=== PATIENT | female | born 1965 | race Caucasian/White ===

== ENCOUNTER 2017-11-29 15:50 | Emergency (ER) | payer SELFPAY ==
[~2017-11-29] VITALS: Ht 157.5 cm; Wt 70.3 kg
[2017-11-29] MEDS ORDERED: METFORMIN HCL500 M1 ORAL (16:11)
[2017-11-29] MEDS ORDERED: GLIMEPIRIDE4 MG ORAL (16:11)
[2017-11-29 17:00] VITALS: BP 134/88
[2017-11-29 17:03] LABS: ANION GAP 10 mmol/L (5-15); BLOOD UREA NITROGEN 11 mg/dL (7-18); CALCIUM 9.3 MG/DL (8.5-10.1); CARBON DIOXIDE 26 MMOL/L (21-32); CHLORIDE 105 MMOL/L (98-107); CREATININE 0.7 MG/DL (0.55-1.30); SODIUM 141 MMOL/L (136-145)
[2017-11-29 17:17] LABS: ALANINE AMINOTRANSFERASE 28 U/L (12-78); ALBUMIN 3.4 G/DL (3.4-5.0); ALKALINE PHOSPHATASE 68 U/L (46-116); ASPARTATE AMINO TRANSFERASE 10 U/L (15-37); BILIRUBIN,TOTAL 0.2 MG/DL (0.2-1.0); CKMB 0.5 NG/ML (0.0-3.6); CREATINE KINASE 46 U/L (26-308)
[2017-11-29 17:18] LABS: BASOPHILS % (AUTO) 1.2 % (0.0-2.0); EOSINOPHILS % (AUTO) 3.5 % (0.0-3.0); HEMATOCRIT 38.5 % (37.0-47.0); HEMOGLOBIN 13.1 G/DL (12.0-16.0); LYMPHOCYTES % (AUTO) 34.8 % (20.0-45.0); MEAN CORPUSCULAR VOLUME 90 FL (80-99); MONOCYTES % (AUTO) 5.2 % (1.0-10.0); NEUTROPHILS % (AUTO) 55.4 % (45.0-75.0); PLATELET COUNT 233 K/UL (150-450); RED BLOOD COUNT 4.27 M/UL (4.20-5.40); RED CELL DISTRIBUTION WIDTH 11.2 % (11.6-14.8); WHITE BLOOD COUNT 10.2 K/UL (4.8-10.8)
[2017-11-29 17:22] LABS: INR 0.9 (0.9-1.1)
--- NOTE | 2017-11-29 18:00 | Diagnostic Imaging Report ---
EXAM: XR Chest, 1 View CLINICAL HISTORY: CP TECHNIQUE: Frontal view of the chest. COMPARISON: No relevant prior studies available. FINDINGS: Lungs: Unremarkable. No consolidation. Pleural space: Unremarkable. No pneumothorax. Heart: Unremarkable. No cardiomegaly. Mediastinum: Unremarkable. Bones/joints: Unremarkable. IMPRESSION: Normal chest x-ray.
[2017-11-29 18:27] VITALS: BP 134/88
--- NOTE | 2017-11-29 18:40 | Emergency Room Report ---
History of Present Illness General Chief Complaint: Chest Pain Source: Patient Present Illness HPI 52-year-old female presents ED for evaluation. Complaining of palpitations and chest pain 2 hours. States she's been having symptoms on and off for the last several days. Describes as tightness, 7/10 nonradiating. Denies shortness of breath. 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 No leg swelling. Not taking blood thinners at this time. No other aggravating relieving factors. Denies any other associated symptoms Allergies: Coded Allergies: No Known Allergies (Unverified , 11/29/17) Patient History Past Medical History: DM Past Surgical History: none Pertinent Family History: none Social History: Denies: smoking, alcohol use, drug use Now: No Immunizations: UTD Reviewed Nursing Documentation: PMH: Agreed; PSxH: Agreed Nursing Documentation-PMH Past Medical History: No History, Except For Hx Diabetes: Yes Review of Systems All Other Systems: negative except mentioned in HPI Physical Exam Vital Signs Date Time Temp Pulse Resp B/P (MAP) Pulse Ox O2 Delivery O2 Flow Rate FiO2 11/29/17 15:58 98.3 106 18 133/86 94 Room Air 98.2 Sp02 EP Interpretation: reviewed, normal General Appearance: no apparent distress, alert, GCS 15, non-toxic Head: normocephalic, atraumatic Eyes: bilateral eye normal inspection, bilateral eye PERRL ENT: hearing grossly normal, normal pharynx, no angioedema, normal voice Neck: full range of motion, supple/symm/no masses Respiratory: chest non-tender, lungs clear, normal breath sounds, speaking full sentences Cardiovascular #1: regular rate, rhythm, no edema Cardiovascular #2: 2+ carotid (R), 2+ carotid (L), 2+ radial (R), 2+ radial (L) , 2+ dorsalis pedis (R), 2+ dorsalis pedis (L) Gastrointestinal: normal bowel sounds, non tender, soft, non-distended, no guarding, no rebound Rectal: deferred Genitourinary: normal inspection, no CVA tenderness Musculoskeletal: back normal, gait/station normal, normal range of motion, non- tender Neurologic: alert, oriented x3, responsive, motor strength/tone normal, sensory intact, speech normal Psychiatric: judgement/insight normal, memory normal, mood/affect normal, no suicidal/homicidal ideation Reflexes: 3+ bicep (R), 3+ bicep (L), 3+ tricep (R), 3+ tricep (L), 3+ knee (R) , 3+ knee (L) Skin: normal color, no rash, warm/dry, well hydrated Lymphatic: no adenopathy Medical Decision Making Diagnostic Impression: Primary Impression: Palpitations ER Course Hospital Course 52-year-old F presents ED complaining of palpitations, chest pain Differential diagnoses include: afib, Vtach, SVT, anxiety, dehydration Clinical course Patient placed on stretcher. After initial history and physical I ordered labs , EKG, chest x-ray, IVFs. labs reviewed- all electrolytes normal, troponins negative, no leukocytosis, hemoglobin/hematocrit stable, ddimer negative EKG - NSR, no acute ischemic changes interpreted by me Chest x-ray-no cardiomegaly, no rib fracture, no pneumothorax, no acute process Discussed findings with the patient. I believe patient is safe for discharge or close outpatient follow-up. Patient agrees with plan states she has a PMD to follow-up with. I. I feel this is a highly complex case requiring extensive working including EKG/Rhythm strip, Xray/CT/US, Blood/urine lab work, repeat exams while in ED, and administration of strong opiates/narcotics for pain control, admission to hospital or close patient follow up. Diagnosis - palpitations Stable and discharged to home. Instructed to followup with PMD. Return to ED if symptoms recur or worsen Labs Test 11/29/17 16:25 White Blood Count 10.2 K/UL (4.8-10.8) Red Blood Count 4.27 M/UL (4.20-5.40) Hemoglobin 13.1 G/DL (12.0-16.0) Hematocrit 38.5 % (37.0-47.0) Mean Corpuscular Volume 90 FL (80-99) Mean Corpuscular Hemoglobin 30.7 PG (27.0-31.0) Mean Corpuscular Hemoglobin Concent 34.1 G/DL (32.0-36.0) Red Cell Distribution Width 11.2 % (11.6-14.8) Platelet Count 233 K/UL (150-450) Mean Platelet Volume 8.2 FL (6.5-10.1) Neutrophils (%) (Auto) 55.4 % (45.0-75.0) Lymphocytes (%) (Auto) 34.8 % (20.0-45.0) Monocytes (%) (Auto) 5.2 % (1.0-10.0) Eosinophils (%) (Auto) 3.5 % (0.0-3.0) Basophils (%) (Auto) 1.2 % (0.0-2.0) Prothrombin Time 9.9 SEC (9.30-11.50) Prothromb Time International Ratio 0.9 (0.9-1.1) Activated Partial Thromboplast Time 24 SEC (23-33) D-Dimer 0.30 mg/L FEU (0.00-0.49) Sodium Level 141 MMOL/L (136-145) Potassium Level 4.0 MMOL/L (3.5-5.1) Chloride Level 105 MMOL/L (98-107) Carbon Dioxide Level 26 MMOL/L (21-32) Anion Gap 10 mmol/L (5-15) Blood Urea Nitrogen 11 mg/dL (7-18) Creatinine 0.7 MG/DL (0.55-1.30) Estimat Glomerular Filtration Rate > 60 mL/min (>60) Glucose Level 312 MG/DL (74-106) Calcium Level 9.3 MG/DL (8.5-10.1) Total Bilirubin 0.2 MG/DL (0.2-1.0) Aspartate Amino Transf (AST/SGOT) 10 U/L (15-37) Alanine Aminotransferase (ALT/SGPT) 28 U/L (12-78) Alkaline Phosphatase 68 U/L (46-116) Total Creatine Kinase 46 U/L (26-308) Creatine Kinase MB 0.5 NG/ML (0.0-3.6) Creatine Kinase MB Relative Index 1.0 Troponin I 0.000 ng/mL (0.000-0.056) Pro-B-Type Natriuretic Peptide 81 pg/mL (0-125) Total Protein 6.8 G/DL (6.4-8.2) Albumin 3.4 G/DL (3.4-5.0) Globulin 3.4 g/dL Albumin/Globulin Ratio 1.0 (1.0-2.7) EKG Diagnostic Results Rate: normal Rhythm: NSR ST Segments: no acute changes ASA given to the pt in ED: No Rhythm Strip Diag. Results EP Interpretation: yes Rhythm: NSR, no PVC's, no ectopy Chest X-Ray Diagnostic Results Chest X-Ray Diagnostic Results : Chest X-Ray Ordered: Yes # of Views/Limited/Complete: 1 View Indication: Chest Pain EP Interpretation: Yes Interpretation: no consolidation, no effusion, no pneumothorax, no acute cardiopulmonary disease Impression: No acute disease Electronically Signed by: Electronically signed by Danny Morales MD Last Vital Signs Date Time Temp Pulse Resp B/P (MAP) Pulse Ox O2 Delivery O2 Flow Rate FiO2 11/29/17 18:27 98.2 96 18 134/88 98 Room Air 98.2 Status: improved Disposition: HOME, SELF-CARE Condition: Stable Referrals: NON PHYSICIAN (PCP) Patient Instructions: Palpitations, [id number] Danny Morales MD Nov 29, 2017 18:40
== END 2017-11-29 18:28 | disposition home or self-care (01) ==
LOC: EMR 16:30
DX: R00.2 Palpitations (principal); E11.9 Type 2 diabetes mellitus without complications
CPT/HCPCS: 36415; 71045; 80053; 82550; 82553; 83880; 84484; 85025; 85379; 85610; 85730; 93005; 99284

== ENCOUNTER 2019-03-31 15:54 | Inpatient (IN) | payer BC ==
[~2019-03-31] VITALS: Ht 157.5 cm; Wt 70.3 kg
[~2019-03-31 15:54] MED LIST: GLIMEPIRIDE4 MG ORAL; METFORMIN HCL500 M1 ORAL
[2019-03-31 16:05] VITALS: BP 177/93
--- NOTE | 2019-03-31 16:05 | NUR ---
ED Nurse Note: Patient came to ED from home c/o mid-sternal chest pain since this AM. Patient states she feels anxious, denies nausea. Patient AxO x 4, no s/s of acute distress. Blood and urine sent to lab
--- NOTE | 2019-03-31 17:06 | Emergency Room Report ---
History of Present Illness General Chief Complaint: Chest Pain Source: Patient Present Illness HPI She is a 53-year-old female who presents after increased generalized weakness and chest discomfort. She reports having increased palpitations onset approximately 4 hours prior to arrival. Prior history of diabetes and had poorly controlled blood sugars normally. She denies any diarrhea. She reports having some increased chest pressure. Denies any bloody stools. Had not been having any sore throat. Denies any headache. Allergies: Coded Allergies: PROCHLORPERAZINE (Verified Allergy, Unknown, 03/31/19) SULFA (SULFONAMIDE ANTIBIOTICS) (Verified Allergy, Unknown, 03/31/19) Patient History Past Medical History: see triage record Last Menstrual Period: HYSTERECTOMY Reviewed Nursing Documentation: PMH: Agreed; PSxH: Agreed Nursing Documentation-PMH Past Medical History: No History, Except For Hx Diabetes: Yes Review of Systems All Other Systems: negative except mentioned in HPI Physical Exam Vital Signs Date Time Temp Pulse Resp B/P (MAP) Pulse Ox O2 Delivery O2 Flow Rate FiO2 03/31/19 15:58 99.3 113 20 177/93 (121) 97 Room Air Sp02 EP Interpretation: reviewed, normal General Appearance: normal inspection, well appearing, no apparent distress, alert, GCS 15 Head: atraumatic ENT: normal ENT inspection, hearing grossly normal, normal voice Neck: normal inspection, full range of motion, supple, no bony tend Respiratory: normal inspection, lungs clear, normal breath sounds, no respiratory distress, no retraction, no wheezing Cardiovascular #1: no edema, tachycardia Gastrointestinal: normal inspection, normal bowel sounds, non tender, soft, no guarding, no hernia Genitourinary: no CVA tenderness Musculoskeletal: normal inspection, back normal, normal range of motion Neurologic: alert, motor strength/tone normal, dietetic technician registered III-XII nml as tested, oriented x3, responsive, speech normal, normal inspection Psychiatric: normal inspection, judgement/insight normal, mood/affect normal Medical Decision Making Diagnostic Impression: Primary Impression: Palpitations ER Course Patient presented for chest pain. Differential diagnosis included but was not limited to acute coronary syndrome, pulmonary embolism, pneumonia, aortic dissection, shingles, pneumothorax, aortic dissection, esophageal rupture, pericarditis. EKG showed EKG interpreted by me showed sinus tachycardia without acute ST or T wave changes. Rate of 107 CXR showed no acute changes. Because of complexity of patient's case laboratory tests and imaging studies were ordered. Patient's laboratory testing did show some evidence of lactic acidosis. Noted be persistently tachycardic. She did have some elevation of her lactic acid level and does take metformin Patient's was noted to have a low-grade temperature influenza study was negative. Patient initially did not appear to have any risk factor for PE however she subsequently mentioned that she had a remote history of PE in the past and so CTA was ordered.Patient subsequently stated that she is allergic to IV contrast and so CTA was canceled. Patient d-dimer did come back within normal range. Patient was discussed with Dr. Luz Maria Tejeda for [facility] due to panel physician. Labs Test 03/31/19 16:40 03/31/19 17:03 03/31/19 18:30 White Blood Count 12.3 K/UL (4.8-10.8) Red Blood Count 4.58 M/UL (4.20-5.40) Hemoglobin 13.7 G/DL (12.0-16.0) Hematocrit 40.7 % (37.0-47.0) Mean Corpuscular Volume 89 FL (80-99) Mean Corpuscular Hemoglobin 29.9 PG (27.0-31.0) Mean Corpuscular Hemoglobin Concent 33.6 G/DL (32.0-36.0) Red Cell Distribution Width 11.7 % (11.6-14.8) Platelet Count 233 K/UL (150-450) Mean Platelet Volume 8.0 FL (6.5-10.1) Neutrophils (%) (Auto) 69.8 % (45.0-75.0) Lymphocytes (%) (Auto) 21.5 % (20.0-45.0) Monocytes (%) (Auto) 4.2 % (1.0-10.0) Eosinophils (%) (Auto) 3.3 % (0.0-3.0) Basophils (%) (Auto) 1.2 % (0.0-2.0) D-Dimer 0.34 mg/L FEU (0.00-0.49) Sodium Level 143 MMOL/L (136-145) Potassium Level 4.4 MMOL/L (3.5-5.1) Chloride Level 103 MMOL/L (98-107) Carbon Dioxide Level 28 MMOL/L (21-32) Anion Gap 12 mmol/L (5-15) Blood Urea Nitrogen 15 mg/dL (7-18) Creatinine 0.8 MG/DL (0.55-1.30) Estimat Glomerular Filtration Rate > 60 mL/min (>60) Glucose Level 213 MG/DL (74-106) Calcium Level 9.9 MG/DL (8.5-10.1) Phosphorus Level 3.5 MG/DL (2.5-4.9) Magnesium Level 1.7 MG/DL (1.8-2.4) Total Bilirubin 0.1 MG/DL (0.2-1.0) Aspartate Amino Transf (AST/SGOT) 14 U/L (15-37) Alanine Aminotransferase (ALT/SGPT) 28 U/L (12-78) Alkaline Phosphatase 61 U/L (46-116) Total Creatine Kinase 72 U/L (26-308) Creatine Kinase MB 0.7 NG/ML (0.0-3.6) Creatine Kinase MB Relative Index 0.9 Troponin I 0.000 ng/mL (0.000-0.056) Total Protein 7.4 G/DL (6.4-8.2) Albumin 3.9 G/DL (3.4-5.0) Globulin 3.5 g/dL Albumin/Globulin Ratio 1.1 (1.0-2.7) Urine Color Pale yellow Urine Appearance Clear Urine pH 5 (4.5-8.0) Urine Specific [place] 1.010 (1.005-1.035) Urine Protein Negative (NEGATIVE) Urine Glucose (UA) 2+ (NEGATIVE) Urine Ketones 2+ (NEGATIVE) Urine Blood Negative (NEGATIVE) Urine Nitrite Negative (NEGATIVE) Urine Bilirubin Negative (NEGATIVE) Urine Urobilinogen Normal MG/DL (0.0-1.0) Urine Leukocyte Esterase Negative (NEGATIVE) Lactic Acid Level 1.60 mmol/L (0.66-2.22) EKG Diagnostic Results Rate: tachycardiac Rhythm: NSR ST Segments: no acute changes ASA given to the pt in ED: No Last Vital Signs Date Time Temp Pulse Resp B/P (MAP) Pulse Ox O2 Delivery O2 Flow Rate FiO2 03/31/19 15:58 99.3 113 20 177/93 (121) 97 Room Air Status: unchanged Disposition: ADMITTED INPATIENT Condition: Stable Jamarcus Cox MD Mar 31, 2019 17:06
[2019-03-31 17:17] LABS: BASOPHILS % (AUTO) 1.2 % (0.0-2.0); EOSINOPHILS % (AUTO) 3.3 % (0.0-3.0); HEMATOCRIT 40.7 % (37.0-47.0); HEMOGLOBIN 13.7 G/DL (12.0-16.0); LYMPHOCYTES % (AUTO) 21.5 % (20.0-45.0); MEAN CORPUSCULAR VOLUME 89 FL (80-99); MONOCYTES % (AUTO) 4.2 % (1.0-10.0); NEUTROPHILS % (AUTO) 69.8 % (45.0-75.0); PLATELET COUNT 233 K/UL (150-450); RED BLOOD COUNT 4.58 M/UL (4.20-5.40); RED CELL DISTRIBUTION WIDTH 11.7 % (11.6-14.8); WHITE BLOOD COUNT 12.3 K/UL (4.8-10.8)
[2019-03-31 17:23] LABS: ANION GAP 12 mmol/L (5-15); BLOOD UREA NITROGEN 15 mg/dL (7-18); CALCIUM 9.9 MG/DL (8.5-10.1); CARBON DIOXIDE 28 MMOL/L (21-32); CHLORIDE 103 MMOL/L (98-107); CREATININE 0.8 MG/DL (0.55-1.30); POTASSIUM 4.4 MMOL/L (3.5-5.1); SODIUM 143 MMOL/L (136-145)
--- NOTE | 2019-03-31 17:24 | Diagnostic Imaging Report ---
Indication: Tortuous of breath Technique: One view of the chest Comparison: none Findings: Lungs and pleural spaces are clear. Heart size is normal. No significant interim change Impression: No acute process
[2019-03-31] MEDS ORDERED: ZOFRAN4 M3 ORAL (17:29)
[2019-03-31 17:32] LABS: APPEARANCE,URINE CLEAR; BILIRUBIN, URINE NEGATIVE (NEGATIVE); COLOR,URINE PALE YELLOW; GLUCOSE, URINE (UA) 2+ (NEGATIVE); KETONES,URINE 2+ (NEGATIVE); LEUKOCYTE ESTERASE ,URINE NEGATIVE (NEGATIVE); NITRITE,URINE NEGATIVE (NEGATIVE); PH,URINE 5 (4.5-8.0); PROTEIN,URINE NEGATIVE (NEGATIVE); UROBILINOGEN,URINE NORMAL MG/DL (0.0-1.0)
[2019-03-31 17:35] LABS: ALANINE AMINOTRANSFERASE 28 U/L (12-78); ALBUMIN 3.9 G/DL (3.4-5.0); ALBUMIN/GLOBULIN RATIO 1.1 (1.0-2.7); ALKALINE PHOSPHATASE 61 U/L (46-116); ASPARTATE AMINO TRANSFERASE 14 U/L (15-37); BILIRUBIN,TOTAL 0.1 MG/DL (0.2-1.0); CKMB 0.7 NG/ML (0.0-3.6); CREATINE KINASE 72 U/L (26-308); PHOSPHORUS 3.5 MG/DL (2.5-4.9)
[2019-03-31 18:14] VITALS: BP 163/81
[2019-03-31] MEDS ORDERED: LORazepam Inj 2mg/ml 1ml IV ONE (18:15)
--- NOTE | 2019-03-31 18:30 | NUR ---
ED Nurse Note: Lactic reflex sent.
--- NOTE | 2019-03-31 19:18 | NUR ---
ED Nurse Note: pt received from HERMAN Angeles. pt is resting in bed with at bedside, VSS. will continue to monitor
[2019-03-31] MEDS ORDERED: LORazepam 1mg tab ORAL PRN (19:30)
[2019-03-31] MEDS ORDERED: Nitroglycerin Subl 0.4mg tab SL PRN (19:30)
[2019-03-31] MEDS ORDERED: Milk of Magnesia 30ml Ud ORAL PRN (19:30)
[2019-03-31] MEDS ORDERED: Omnipaque 350 100ml vial INJ PRN (20:30)
[2019-03-31 20:35] VITALS: BP 158/84
[2019-03-31] MEDS: Docusate 100mg cap ORAL SCH (23:20)
[2019-03-31] MEDS: Atorvastatin 80mg tab ORAL SCH (23:20)
[2019-03-31] MEDS ORDERED: Heparin 5000 units/ml inj IV ONE (23:20)
--- NOTE | 2019-03-31 23:23 | NUR ---
ED Nurse Note: Benjamin () contact info: [phone]
[2019-03-31] MEDS: NovoLOG Insulin Flexpen SUBQ SCH (23:30)
--- NOTE | 2019-03-31 23:56 | NUR ---
ED Nurse Note: pt is resting in bed with eyes closed, VSS. pt requested and was provided with a sandwich and several juices. she does not appea to be in any acute distress at this time.
[2019-04-01] VITALS (7 sets, daily range): BP systolic 124–162; BP diastolic 76–90
--- NOTE | 2019-04-01 03:55 | NUR ---
ED Nurse Note: called lab to ask about troponin redraw, agriculture laboratory technician stated that they did not need a troponin redraw despite orders for troponin level every 6 hours
--- NOTE | 2019-04-01 04:03 | NUR ---
ED Nurse Note: pt is resting in [place] bed with eyes closed, VSS. she does not appear to be in any acute distress at this time. will continue to monitor
[2019-04-01] MEDS: NovoLOG Insulin Flexpen SUBQ SCH ×4 (06:30→21:18)
--- NOTE | 2019-04-01 07:17 | NUR ---
HAND-OFF: Report given to HERMAN Torres.
--- NOTE | 2019-04-01 08:05 | NUR ---
ED Nurse Note: Gave update to PT that she is getting admitted, primary nurse is giving report to take PT to floor/assigned room; PT got defensive/advised to "tone it down, i'm a nice person." Advised PT that she will be transferred, apologized to her.
--- NOTE | 2019-04-01 08:08 | NUR ---
ED Nurse Note: REPORT GIVEN TO CHRISTI SUTTON OF TELEMETRY UNIT.
--- NOTE | 2019-04-01 08:23 | NUR ---
ED Nurse Note: FAXED FACESHEET TO CARDIOLOGY UNIT FOR EKG COPY AND REQUESTED TO SEND IT DIRECTLY TO TELEMETRY UNIT.
--- NOTE | 2019-04-01 08:50 | NUR ---
NURSE NOTES: Received report from HERMAN Torres. Patient in bed resting, no active s/s cardiac, respiratory distress noticed at this time. Patient on room air, c/o chest pain 5/10, AOx4. IV on left AC 20G, asymptomatic, patent, intact. Bed in lowest position, side rails upx2, call light within reach. Will continue to monitor.
[2019-04-01] MEDS: Docusate 100mg cap ORAL SCH ×3 (09:00→21:00)
--- NOTE | 2019-04-01 09:00 | NUR ---
NURSE NOTES: Patient requesting private room, CN made aware, patient made aware when private room available will let patient knows. Patient agitated, stated if no private room available, will leave the hospital.
--- NOTE | 2019-04-01 10:00 | NUR ---
NURSE NOTES: Patient requesting to see Doctor, c/o food not given since yesterday.
--- NOTE | 2019-04-01 10:33 | NUR ---
NURSE NOTES: Dr. Lemus at the nursing station, patient and family member would like to speak with MD. MD made aware from ED, Heparin 5000 u, IV, once not given. Per MD no need to give IV heparin. Admission order received. Order noted, entered, carried. Will continue to monitor.
[2019-04-01] MEDS: Aspirin Baby 81mg ORAL SCH (11:23)
[2019-04-01] MEDS ORDERED: traMADol 50mg tab ORAL PRN (13:45)
--- NOTE | 2019-04-01 13:54 | NUR ---
CASE MANAGEMENT: INITIAL REVIEW 53YR OLD FEMALE FROM HOME CC: CHEST PAIN SI:PALPITATION 99.4 113 20 177/93 97% ON RA WBC 12.3 BG 213 MG 1.7 LACTIC ACID 2.4 IS:IVF NS BOLUS X1 IV ATIVAN X1 TYLENOL PO X1 CHEST X-RAY- NO ACUTE PROCESS \: 2E TELE UNIT DCP: HOME WHEN STABLE CASE MANAGEMENT: REVIEW 04/01/19 SI:PALPITATION 98.3 76 16 142/75 99% ON RA IS:IV NS@75ML/HR IV MG SULFATE X2 BAGS ASA PO QD \: 2E TELE UNIT DCP: HOME WHEN STABLE PLAN: ORTHOSTATIC VITALS Addendum: 04/01/19 at 1435 by BARBARA LOYOLA LVN INTERQUAL MET-OBS
[2019-04-01] MEDS: oxyCODONE 5mg IR tab ORAL PRN ×2 (14:52→21:26)
--- NOTE | 2019-04-01 15:04 | Consultation ---
History of Present Illness General Date patient seen: Apr 01, 2019 Time patient seen: 15:01 Chief Complaint: Chest Pain Present Illness HPI 53 year old female presents with unstable angina and chest pain, initial troponin and EKG negative. No prior [place]/Pe/DVt/CVA/arrhythmias. CP is midsternal pressure sensation. NO risk factors. She has anxiety and stress. Allergies: Coded Allergies: PROCHLORPERAZINE (Verified Allergy, Unknown, 03/31/19) SULFA (SULFONAMIDE ANTIBIOTICS) (Verified Allergy, Unknown, 03/31/19) Medication History Scheduled Glimepiride* (Glimepiride*), 4 MG ORAL BID, (Reported) Metformin Hcl* (Metformin Hcl*), 500 MG ORAL TWICE A DAY, (Reported) Scheduled PRN Ondansetron* (Zofran*), 4 MG ORAL Q6H PRN for Nausea & Vomiting, (Reported) Patient History Healthcare decision maker any family member in the room Resuscitation status Full Code Advanced Directive on File Review of Systems Constitutional: Denies: no symptoms Eye: Reports: no symptoms ENT: Reports: no symptoms Respiratory: Reports: no symptoms Cardiovascular: Reports: chest pain Gastrointestinal: Reports: no symptoms Genitourinary: Reports: no symptoms Musculoskeletal: Reports: no symptoms Skin: Reports: no symptoms Psychiatric: Reports: no symptoms Neurological: Reports: no symptoms Endocrine: Reports: no symptoms Hematologic/Lymphatic: Reports: no symptoms Physical Exam General Appearance: no apparent distress, alert Lines, tubes and drains: peripheral HEENT: normocephalic, mucous membranes moist, PERRL Neck: non-tender, supple, normal inspection Respiratory/Chest: lungs clear, normal breath sounds, no respiratory distress Cardiovascular/Chest: normal peripheral pulses, normal rate, regular rhythm Abdomen: normal bowel sounds, non tender, soft, no organomegaly, no mass Extremities: normal range of motion, non-tender, normal inspection, no calf tenderness, normal capillary refill, non-pitting Skin Exam: normal pigmentation, warm/dry, cyanotic Neurologic: hand gluer and slicer II-XII grossly normal Last 24 Hour Vital Signs Date Time Temp Pulse Resp B/P (MAP) Pulse Ox O2 Delivery O2 Flow Rate FiO2 04/01/19 09:28 Room Air 04/01/19 08:36 83 04/01/19 08:24 98.3 76 16 142/75 99 Room Air 04/01/19 07:00 98.0 89 20 148/79 97 Room Air 04/01/19 04:45 81 19 135/87 97 Room Air 04/01/19 02:40 77 21 125/82 100 Room Air 04/01/19 00:30 105 23 162/87 97 Room Air 03/31/19 20:35 113 21 158/84 99 Room Air 03/31/19 18:14 98.0 111 20 163/81 100 Room Air 03/31/19 16:05 113 20 Room Air 03/31/19 16:05 99.3 111 20 177/93 97 Room Air 03/31/19 15:58 99.3 113 20 177/93 (121) 97 Room Air Intake and Output 03/31/19 04/01/19 19:00 07:00 Intake Total 0 ml Balance 0 ml Intake Oral 0 ml Laboratory Tests Test 03/31/19 16:40 03/31/19 17:03 03/31/19 18:30 04/01/19 12:30 White Blood Count 12.3 K/UL (4.8-10.8) H Red Blood Count 4.58 M/UL (4.20-5.40) Hemoglobin 13.7 G/DL (12.0-16.0) Hematocrit 40.7 % (37.0-47.0) Mean Corpuscular Volume 89 FL (80-99) Mean Corpuscular Hemoglobin 29.9 PG (27.0-31.0) Mean Corpuscular Hemoglobin Concent 33.6 G/DL (32.0-36.0) Red Cell Distribution Width 11.7 % (11.6-14.8) Platelet Count 233 K/UL (150-450) Mean Platelet Volume 8.0 FL (6.5-10.1) Neutrophils (%) (Auto) 69.8 % (45.0-75.0) Lymphocytes (%) (Auto) 21.5 % (20.0-45.0) Monocytes (%) (Auto) 4.2 % (1.0-10.0) Eosinophils (%) (Auto) 3.3 % (0.0-3.0) H Basophils (%) (Auto) 1.2 % (0.0-2.0) D-Dimer 0.34 mg/L FEU (0.00-0.49) Sodium Level 143 MMOL/L (136-145) Potassium Level 4.4 MMOL/L (3.5-5.1) Chloride Level 103 MMOL/L (98-107) Carbon Dioxide Level 28 MMOL/L (21-32) Anion Gap 12 mmol/L (5-15) Blood Urea Nitrogen 15 mg/dL (7-18) Creatinine 0.8 MG/DL (0.55-1.30) Estimat Glomerular Filtration Rate > 60 mL/min (>60) Glucose Level 213 MG/DL (74-106) H Lactic Acid Level 2.40 mmol/L (0.4-2.0) H 1.60 mmol/L (0.66-2.22) 0.90 mmol/L (0.4-2.0) Calcium Level 9.9 MG/DL (8.5-10.1) Phosphorus Level 3.5 MG/DL (2.5-4.9) Magnesium Level 1.7 MG/DL (1.8-2.4) L Total Bilirubin 0.1 MG/DL (0.2-1.0) L Aspartate Amino Transf (AST/SGOT) 14 U/L (15-37) L Alanine Aminotransferase (ALT/SGPT) 28 U/L (12-78) Alkaline Phosphatase 61 U/L (46-116) Total Creatine Kinase 72 U/L (26-308) Creatine Kinase MB 0.7 NG/ML (0.0-3.6) Creatine Kinase MB Relative Index 0.9 Troponin I 0.000 ng/mL (0.000-0.056) 0.003 ng/mL (0.000-0.056) Total Protein 7.4 G/DL (6.4-8.2) Albumin 3.9 G/DL (3.4-5.0) Globulin 3.5 g/dL Albumin/Globulin Ratio 1.1 (1.0-2.7) Urine Color Pale yellow Urine Appearance Clear Urine pH 5 (4.5-8.0) Urine Specific [place] 1.010 (1.005-1.035) Urine Protein Negative (NEGATIVE) Urine Glucose (UA) 2+ (NEGATIVE) H Urine Ketones 2+ (NEGATIVE) H Urine Blood Negative (NEGATIVE) Urine Nitrite Negative (NEGATIVE) Urine Bilirubin Negative (NEGATIVE) Urine Urobilinogen Normal MG/DL (0.0-1.0) Urine Leukocyte Esterase Negative (NEGATIVE) Microbiology Date/Time Source Procedure Growth Status 03/31/19 16:50 Nasal Nares - Final Complete 03/31/19 16:50 Nasal Nares - Final Complete Height (Feet): 5 Height (Inches): 2.00 Weight (Pounds): 155 Medications Current Medications Medications (Trade) Dose Ordered Sig/Janay Route PRN Reason Start Time Stop Time Status Last Admin Dose Admin Acetaminophen (Tylenol) 325 mg Q4H PRN ORAL Mild Pain (Pain Scale 1-3) 03/31/19 19:30 04/30/19 19:29 Aspirin (ASA) 81 mg DAILY ORAL 04/01/19 09:00 05/01/19 08:59 04/01/19 11:23 Atorvastatin Calcium (Lipitor) 80 mg BEDTIME ORAL 03/31/19 23:20 04/30/19 23:19 Dextrose (Dextrose 50%) 25 ml Q30M PRN IV Hypoglycemia 03/31/19 19:30 04/30/19 19:29 Dextrose (Dextrose 50%) 50 ml Q30M PRN IV Hypoglycemia 03/31/19 19:30 04/30/19 19:29 Docusate Sodium (Colace) 100 mg EVERY 12 HOURS ORAL 03/31/19 23:20 04/30/19 23:19 Heparin Sodium (Porcine) (Heparin 5000 units/ml) 5,000 units EVERY 12 HOURS SUBQ 04/01/19 21:00 05/01/19 20:59 Hydralazine HCl (Apresoline) 10 mg Q4H PRN IV For High Blood Pressure 03/31/19 23:20 04/30/19 23:19 Insulin Aspart (NovoLOG) BEFORE MEALS AND HS SUBQ 03/31/19 23:30 04/30/19 23:29 Iohexol (Omnipaque 350 100ml) 100 ml NOW PRN INJ Radiology Procedure 03/31/19 20:30 04/02/19 20:22 Lorazepam (Ativan) 1 mg Q4H PRN ORAL For Anxiety 03/31/19 19:30 04/07/19 19:29 Magnesium Hydroxide (Mom) 30 ml HSPRN PRN ORAL Constipation 03/31/19 19:30 04/30/19 19:29 Nitroglycerin (Ntg) 0.4 mg Q5M PRN SL Prn Chest Pain 03/31/19 19:30 04/30/19 19:29 Ondansetron HCl (Zofran) 4 mg Q6H PRN ORAL Nausea & Vomiting 04/01/19 13:45 05/01/19 13:44 Oxycodone HCl (Roxicodone) 5 mg Q6H PRN ORAL Severe Breakthru Pain (>7) 04/01/19 13:45 04/08/19 13:44 04/01/19 14:52 Sodium Chloride 1,000 ml @ 75 mls/hr [id number] IV 04/01/19 12:45 05/01/19 12:44 04/01/19 13:04 Tramadol HCl (Ultram) 50 mg Q6H PRN ORAL Moderate Pain (Pain Scale 4-6) 04/01/19 13:45 04/08/19 13:44 Assessment/Plan Status: stable Assessment/Plan: Assessment Chest pain Palpitations Anxiety Plan: Serial EKG/Troponin/telemetry Nitro prn CP Low pretest probability - proceed with stress echo inpatient vs outpatient No heparin indicated Baby aspirin IV fluid hydration Check lipid profile Raymon Weeks MD Apr 01, 2019 15:04
--- NOTE | 2019-04-01 18:51 | History and Physical ---
History of Present Illness General Date patient seen: Apr 01, 2019 Reason for Hospitalization: Chest Pain Present Illness HPI This is a 53-year-old female with a past medical history of diabetes, hypertension, breast cancer who presents with chest pain midsternal nonradiating constant but improving for the past 1 to 2 days. She states that the pain is not worse with exertion or activity. She denies any recent illnesses, cough, fever, chills, shortness of breath, diaphoresis. She states that she has had a poor appetite over the past 2 months since she was started on a higher dose of metformin. In the ER the patient with stable vital signs. CBC remarkable for elevated white count and lactate of 2.4. Rest of chempanel normal. Magnesium low at 1.7. Initial troponin negative. EKG shows sinus tachycardia without acute ST or T wave changes. Rate of 107. X-ray shows no acute findings. Allergies sulfa and Compazine Past medical history see HPI Surgical history hysterectomy bilateral breast lumpectomy for breast cancer Social history denies tobacco alcohol or drug use. Family history dad with heart attack at 69 years old and diabetes Mother with CVA at 72. Allergies: Coded Allergies: PROCHLORPERAZINE (Verified Allergy, Unknown, 03/31/19) SULFA (SULFONAMIDE ANTIBIOTICS) (Verified Allergy, Unknown, 03/31/19) Medication History Scheduled Glimepiride* (Glimepiride*), 4 MG ORAL BID, (Reported) Metformin Hcl* (Metformin Hcl*), 500 MG ORAL TWICE A DAY, (Reported) Scheduled PRN Ondansetron* (Zofran*), 4 MG ORAL Q6H PRN for Nausea & Vomiting, (Reported) Patient History Healthcare decision maker any family member in the room Resuscitation status Full Code Advanced Directive on File Review of Systems ROS Narrative Review of systems: Constitutional: Denies: chills, diaphoresis, fever, malaise, weakness, other HEENT: Denies: eye pain, blurred vision, tearing, double vision, ear pain, ear discharge, nose pain, nose congestion, throat pain, throat swelling, mouth pain , mouth swelling, Cardiovascular: Denies: edema, lightheadedness, palpitations, syncope, endorses chest pain (much improved) Respiratory: Denies: cough, orthopnea, shortness of breath, SOB with excertion , SOB at rest, sputum, stridor, wheezing, other Gastrointestinal/Abdominal: Denies: abdomen distended, abdominal pain, black stools, tarry stools, blood in stool, constipated, diarrhea, difficulty swallowing, nausea, poor appetite, poor fluid intake, rectal bleeding, vomiting , other Genitourinary: Denies: burning, discharge, frequency, flank pain, hematuria, incontinence, pain, urgency, other Neurologic/Psychiatric: Denies: anxiety, depressed, emotional problems, headache, numbness, paresthesia, pre-existing deficit, seizure, tingling, tremors, weakness, other Endocrine: Denies: excessive sweating, flushing, intolerance to cold, intolerance to heat, increased hunger, increased thirst, increased urine, unexplained weight gain, unexplained weight loss, other MSK: denies joint pains, swelling, stiffness Hematologic/Lymphatic: Denies: anemia, easy bleeding, easy bruising, other Physical Exam Last 24 Hour Vital Signs Date Time Temp Pulse Resp B/P (MAP) Pulse Ox O2 Delivery O2 Flow Rate FiO2 04/01/19 16:00 82 04/01/19 09:28 Room Air 04/01/19 08:36 83 04/01/19 08:24 98.3 76 16 142/75 99 Room Air 04/01/19 07:00 98.0 89 20 148/79 97 Room Air 04/01/19 04:45 81 19 135/87 97 Room Air 04/01/19 02:40 77 21 125/82 100 Room Air 04/01/19 00:30 105 23 162/87 97 Room Air 03/31/19 20:35 113 21 158/84 99 Room Air Intake and Output 03/31/19 04/01/19 19:00 07:00 Intake Total 0 ml Balance 0 ml Intake Oral 0 ml Laboratory Tests Test 04/01/19 12:30 Lactic Acid Level 0.90 mmol/L (0.4-2.0) Troponin I 0.003 ng/mL (0.000-0.056) Height (Feet): 5 Height (Inches): 2.00 Weight (Pounds): 155 Medications Current Medications Medications (Trade) Dose Ordered Sig/Janay Route PRN Reason Start Time Stop Time Status Last Admin Dose Admin Acetaminophen (Tylenol) 325 mg Q4H PRN ORAL Mild Pain (Pain Scale 1-3) 03/31/19 19:30 04/30/19 19:29 Aspirin (ASA) 81 mg DAILY ORAL 04/01/19 09:00 05/01/19 08:59 04/01/19 11:23 Atorvastatin Calcium (Lipitor) 80 mg BEDTIME ORAL 03/31/19 23:20 04/30/19 23:19 Dextrose (Dextrose 50%) 25 ml Q30M PRN IV Hypoglycemia 03/31/19 19:30 04/30/19 19:29 Dextrose (Dextrose 50%) 50 ml Q30M PRN IV Hypoglycemia 03/31/19 19:30 04/30/19 19:29 Docusate Sodium (Colace) 100 mg EVERY 12 HOURS ORAL 03/31/19 23:20 04/30/19 23:19 Heparin Sodium (Porcine) (Heparin 5000 units/ml) 5,000 units EVERY 12 HOURS SUBQ 04/01/19 21:00 05/01/19 20:59 Hydralazine HCl (Apresoline) 10 mg Q4H PRN IV For High Blood Pressure 03/31/19 23:20 04/30/19 23:19 Insulin Aspart (NovoLOG) BEFORE MEALS AND HS SUBQ 03/31/19 23:30 04/30/19 23:29 04/01/19 17:47 Iohexol (Omnipaque 350 100ml) 100 ml NOW PRN INJ Radiology Procedure 03/31/19 20:30 04/02/19 20:22 Lorazepam (Ativan) 1 mg Q4H PRN ORAL For Anxiety 03/31/19 19:30 04/07/19 19:29 Magnesium Hydroxide (Mom) 30 ml HSPRN PRN ORAL Constipation 03/31/19 19:30 04/30/19 19:29 Nitroglycerin (Ntg) 0.4 mg Q5M PRN SL Prn Chest Pain 03/31/19 19:30 04/30/19 19:29 Ondansetron HCl (Zofran) 4 mg Q6H PRN ORAL Nausea & Vomiting 04/01/19 13:45 05/01/19 13:44 Oxycodone HCl (Roxicodone) 5 mg Q6H PRN ORAL Severe Breakthru Pain (>7) 04/01/19 13:45 04/08/19 13:44 04/01/19 14:52 Sodium Chloride 1,000 ml @ 75 mls/hr [id number] IV 04/01/19 12:45 05/01/19 12:44 04/01/19 13:04 Tramadol HCl (Ultram) 50 mg Q6H PRN ORAL Moderate Pain (Pain Scale 4-6) 04/01/19 13:45 04/08/19 13:44 Objective Narrative General: WDWN female in NAD, A&O x 4 HEENT: Normocephalic cephalic atraumatic, pupils equal round reactive to light and accommodation, nares patent and no symmetrical, no tonsillar exudates, mucous membranes moist CV: Regular rate regular rhythm, no murmurs, rubs, or gallops Pulm: Lungs clear to auscultation bilaterally. No wheezes, rhonchi, or rales GI: Soft, nontender, nondistended, bowel sounds present Neuro: CN 2-12 intact bilaterally, no focal signs. Ext: No lower extremity edema bilaterally Skin: no rashes lesions or ulcers Msk: Joints symmetrical in upper extremity and lower extremity bilaterally, no joint swelling. Lymph: No lymphadenopathy in upper extremity and lower extremity Assessment/Plan Assessment/Plan: #Atypical chest pain. HEART score 2 (low risk) #Rule out ACS #Essential hypertension -Admit to telemetry -Echocardiogram -Trend troponins: Negative -Cardiology consult: Dr. Weeks -NPO for stress echo in AM -IV hydration #Lactic acidosis suspect secondary to severe dehydration -Resolved off abx and with IV fluids -CTM -Encourage PO intake #Diabetes mellitus type 2 >Last A1C 10.9 per patient -Hold home p.o. antihyperglycemic -Sliding scale Insulin -Hypoglycemia protocol -Check A1c #History of breast cancer status post lumpectomy -Follow-up with oncologist [facility] DVTPPX: HSQ GI PPX: none needed Fluids: as above Diet: Cardiac, NPO after midnight Lines: None PT/OT: None needed Code status: Full code Dispo: Pending stress test Reason for Continued Hospitalization: stress test 73 minutes spent on this encounter. Discussed with RN and Cardiology. > 50% spent on counseling and care coordination. Time of note may not reflect time patient was seen. Damaso Lemus D.O. Apr 01, 2019 18:51
--- NOTE | 2019-04-01 19:42 | NUR ---
HAND-OFF: Report given to HERMAN White. Endorsed plan of care.
--- NOTE | 2019-04-01 19:50 | NUR ---
NURSE NOTES: Received pt from HERMAN Nguyen. Pt awake, alert, and talkative. Family at bedside. Bed in lowest position. Call light within reach. IV intact and running fluids. Will continue to monitor.
[2019-04-01] MEDS: Atorvastatin 80mg tab ORAL SCH (21:00)
[2019-04-01] MEDS: Heparin 5000 units/ml inj SUBQ SCH (21:00)
[2019-04-02] VITALS: BP 114/74
[2019-04-02 04:00] VITALS: BP 118/70
[2019-04-02] MEDS: NovoLOG Insulin Flexpen SUBQ SCH ×2 (06:12→11:30)
[2019-04-02 07:24] LABS: BASOPHILS % (AUTO) 1.5 % (0.0-2.0); EOSINOPHILS % (AUTO) 6.8 % (0.0-3.0); HEMOGLOBIN 12.4 G/DL (12.0-16.0); LYMPHOCYTES % (AUTO) 43.2 % (20.0-45.0); MEAN CORPUSCULAR VOLUME 90 FL (80-99); MONOCYTES % (AUTO) 5.6 % (1.0-10.0); PLATELET COUNT 202 K/UL (150-450); RED CELL DISTRIBUTION WIDTH 11.8 % (11.6-14.8); WHITE BLOOD COUNT 7.5 K/UL (4.8-10.8)
--- NOTE | 2019-04-02 07:34 | NUR ---
HAND-OFF: Report given to HERMAN Mccarthy. Pt stable.
--- NOTE | 2019-04-02 07:40 | NUR ---
NURSE NOTES: Received report from HERMAN White. Pt A/O x4, no s/sx of acute distress, breathing even and unlabored in RA. Pt NPO, scheduled for lexiscan today. IV site on L AC 20g patent and asymptomatic, running NS at 75ml/hr. bed on lowest position, call light within reach. Will continue plan of care. Addendum: 04/02/19 at 0851 by Shari Gomez RN Pt scheduled for echo stress, not lexiscan.
[2019-04-02 07:53] LABS: ANION GAP 13 mmol/L (5-15); BLOOD UREA NITROGEN 10 mg/dL (7-18); CARBON DIOXIDE 23 MMOL/L (21-32); CHLORIDE 108 MMOL/L (98-107); CREATININE 0.6 MG/DL (0.55-1.30); PHOSPHORUS 3.4 MG/DL (2.5-4.9); POTASSIUM 4.3 MMOL/L (3.5-5.1); SODIUM 143 MMOL/L (136-145)
[2019-04-02 08:00] VITALS: BP 123/72
[2019-04-02 08:18] LABS: CHOLESTEROL 161 MG/DL (< 200); HDL CHOLESTEROL 44 MG/DL (40-60); TRIGLYCERIDES 71 MG/DL (30-150)
[2019-04-02] MEDS: Aspirin Baby 81mg ORAL SCH (08:45)
[2019-04-02] MEDS: oxyCODONE 5mg IR tab ORAL PRN (08:46)
[2019-04-02] MEDS: Heparin 5000 units/ml inj SUBQ SCH (08:50)
[2019-04-02] MEDS: Docusate 100mg cap ORAL SCH (08:50)
--- NOTE | 2019-04-02 08:53 | Cardiology Progress Note ---
Assessment/Plan Status: stable Assessment/Plan Assessment/Plan: Chest pain Palpitations Anxiety Plan: Serial EKG/Troponin/telemetry Nitro prn CP Low pretest probability - proceed with stress echo inpatient vs outpatient No heparin indicated Baby aspirin IV fluid hydration Check lipid profile Subjective Cardiovascular: Reports: no symptoms Respiratory: Reports: no symptoms Gastrointestinal/Abdominal: Reports: no symptoms Subjective No acute events, troponin negative, chest pain subsided, stress test pending Objective Last 24 Hour Vital Signs Date Time Temp Pulse Resp B/P (MAP) Pulse Ox O2 Delivery O2 Flow Rate FiO2 04/02/19 08:28 Room Air 04/02/19 04:00 70 04/02/19 04:00 98.1 62 18 118/70 (86) 97 04/02/19 00:00 69 04/02/19 00:00 97.9 78 20 114/74 (87) 96 04/01/19 21:00 Room Air 04/01/19 20:00 78 04/01/19 20:00 98.2 76 20 124/84 (97) 96 04/01/19 16:00 98.3 82 16 138/76 (96) 98 04/01/19 16:00 82 04/01/19 12:00 98.2 78 16 141/77 (98) 98 142/77 (98) 137/90 (106) 04/01/19 12:00 78 86 91 04/01/19 09:28 Room Air General Appearance: no apparent distress, alert EENT: PERRL/EOMI, normal ENT inspection, TMs normal, pharynx normal Neck: non-tender, normal alignment, supple, normal inspection, no JVD Rhythm: NSR Cardiovascular: normal peripheral pulses, normal rate, regular rhythm Respiratory/Chest: chest wall non-tender, lungs clear, normal breath sounds, no respiratory distress, no accessory muscle use Abdomen: normal bowel sounds, non tender, no organomegaly, no mass Extremities: normal range of motion, non-tender, normal inspection, no calf tenderness, no swelling Neurologic: manager english II-XII grossly normal, no motor/sensory deficits, alert, oriented x 3, responsive Intake and Output 04/01/19 04/02/19 19:00 07:00 Intake Total 800 ml Balance 800 ml Intake Oral 800 ml # Voids 6 Laboratory Tests Test 04/01/19 12:30 2/20/20 18:30 04/02/19 06:25 Lactic Acid Level 0.90 mmol/L (0.4-2.0) Troponin I 0.003 ng/mL (0.000-0.056) 0.008 ng/mL (0.000-0.056) White Blood Count 7.5 K/UL (4.8-10.8) Red Blood Count 4.10 M/UL (4.20-5.40) L Hemoglobin 12.4 G/DL (12.0-16.0) Hematocrit 37.0 % (37.0-47.0) Mean Corpuscular Volume 90 FL (80-99) Mean Corpuscular Hemoglobin 30.2 PG (27.0-31.0) Mean Corpuscular Hemoglobin Concent 33.5 G/DL (32.0-36.0) Red Cell Distribution Width 11.8 % (11.6-14.8) Platelet Count 202 K/UL (150-450) Mean Platelet Volume 7.8 FL (6.5-10.1) Neutrophils (%) (Auto) 43.0 % (45.0-75.0) L Lymphocytes (%) (Auto) 43.2 % (20.0-45.0) Monocytes (%) (Auto) 5.6 % (1.0-10.0) Eosinophils (%) (Auto) 6.8 % (0.0-3.0) H Basophils (%) (Auto) 1.5 % (0.0-2.0) Sodium Level 143 MMOL/L (136-145) Potassium Level 4.3 MMOL/L (3.5-5.1) Chloride Level 108 MMOL/L (98-107) H Carbon Dioxide Level 23 MMOL/L (21-32) Anion Gap 13 mmol/L (5-15) Blood Urea Nitrogen 10 mg/dL (7-18) Creatinine 0.6 MG/DL (0.55-1.30) Estimat Glomerular Filtration Rate > 60 mL/min (>60) Glucose Level 230 MG/DL (74-106) H Hemoglobin A1c 9.2 % (4.3-6.0) H Calcium Level 9.0 MG/DL (8.5-10.1) Phosphorus Level 3.4 MG/DL (2.5-4.9) Magnesium Level 2.0 MG/DL (1.8-2.4) Triglycerides Level 71 MG/DL (30-150) Cholesterol Level 161 MG/DL (< 200) LDL Cholesterol 100 mg/dL (<100) HDL Cholesterol 44 MG/DL (40-60) Cholesterol/HDL Ratio 3.7 (3.3-4.4) Microbiology Date/Time Source Procedure Growth Status 03/31/19 16:40 Blood Blood Culture - Preliminary NO GROWTH AFTER 24 HOURS Resulted 03/31/19 16:20 Blood Blood Culture - Preliminary NO GROWTH AFTER 24 HOURS Resulted 03/31/19 16:50 Nasal Nares - Final Complete 03/31/19 16:50 Nasal Nares - Final Complete Raymon Weeks MD Apr 02, 2019 08:53
--- NOTE | 2019-04-02 10:56 | NUR ---
*-* INSURANCE *-* ALL CLINICALS AND REVIEWS HAVE BEEN FAXED O: [employer] REF# [id number] F: [phone]
--- NOTE | 2019-04-02 12:38 | Discharge Instructions ---
Discharge Instructions Discharge Instructions Diet: diabetic calorie control Resume Normal Activity?: Yes Activity: resume normal activities Follow Up Orders Follow up with your PCP within one week Check your blood sugars before each meal and at night and bring with you to next visit Follow up with Substation Operator Dr. Edd Rose if you would like regarding your diabetes. Call to make appointment [phone]. Stop metformin Stay well hydrated Damaso Lemus D.O. Apr 02, 2019 12:38
[2019-04-02] MEDS ORDERED: Levemir Flexpen SUBQ SCH (13:00)
--- NOTE | 2019-04-02 13:58 | NUR ---
CASE MANAGEMENT: REVIEW 04/02/19 SI:PALPITATION 97.5 67 20 123/72 96% ON RA CL-108 BG 230 IS:IV NS@75ML/HR OXYCODONE Q6HR/PRN ZOFRAN Q6HR/PRN ASA PO QD \: 2E TELE UNIT DCP: HOME WHEN STABLE PLAN: STRESS TEST TODAY POSS DC IF NEGATIVE
[2019-04-02] MEDS ORDERED: ATORVASTATIN CA20 MG ORAL (16:01)
[2019-04-02] MEDS ORDERED: ASPIRIN81 MG ORAL (16:01)
[2019-04-02] MEDS ORDERED: FAMOTIDINE20 MG ORAL (16:01)
[2019-04-02] MEDS ORDERED: JANUVIA100 MG ORAL (16:01)
--- NOTE | 2019-04-02 16:30 | NUR ---
NURSE NOTES: Tele monitor and IV removed, no bleeding noted. Pt refused stat insulin before DC and stated that she rather take meds home. Pt agreed to take Januvia before DC. Patient left the unit, accompanied by the . No s/sx of acute distress, in stable condition. DC instructions given to pt.
--- NOTE | 2019-04-02 18:11 | Discharge Summary ---
Discharge Summary Hospital Course Date of Admission Mar 31, 2019 at 18:33 Date of Discharge Apr 02, 2019 at 16:29 Admitting Diagnosis chest pain, dehydration, tachycardia HPI Micaela Mojica is a 53 year old female who was admitted on Mar 31, 2019 at 18:33 for Chest Pain/Dehydration/Tachycardia Consultations Cardiology Hospital Course This is a 53-year-old female with a past medical history of diabetes, hypertension, breast cancer who presents with chest pain midsternal nonradiating constant but improving for the past 1 to 2 days. She states that the pain is not worse with exertion or activity. She denies any recent illnesses, cough, fever, chills, shortness of breath, diaphoresis. She states that she has had a poor appetite over the past 2 months since she was started on a higher dose of metformin. In the ER the patient with stable vital signs. CBC remarkable for elevated white count and lactate of 2.4. Rest of chempanel normal. Magnesium low at 1.7. Initial troponin negative. EKG shows sinus tachycardia without acute ST or T wave changes. Rate of 107. X-ray shows no acute findings. Patient was seen by cardiology, who recommended a stress echo. Her troponins were negative x3. No events on telemetry. She was given IV fluids with return to normal of her lactate. Stress echo was performed which was negative for ischemia. Metformin discontinued as patient was not tolerating and may have contributed to lactic acidosis and dehydration. She was switched to Januvia 100 mg p.o. daily after discussion with endocrinology Dr. Rose who will see her as an outpatient. She was cleared for discharge by cardiology. She was started on aspirin 81 mg daily and Lipitor 20 mg daily. She was also started on Pepcid for possible acid reflux contributing to her symptoms. She was instructed to follow-up with her PCP within 1 week and Cardiology in 1-2 weeks. Review of systems: Constitutional: Denies: chills, diaphoresis, fever, malaise, weakness, other HEENT: Denies: eye pain, blurred vision, tearing, double vision, ear pain, ear discharge, nose pain, nose congestion, throat pain, throat swelling, mouth pain , mouth swelling, Cardiovascular: Denies: chest pain, edema, lightheadedness, palpitations, syncope, Respiratory: Denies: cough, orthopnea, shortness of breath, SOB with excertion , SOB at rest, sputum, stridor, wheezing, other Gastrointestinal/Abdominal: Denies: abdomen distended, abdominal pain, black stools, tarry stools, blood in stool, constipated, diarrhea, difficulty swallowing, nausea, poor appetite, poor fluid intake, rectal bleeding, vomiting , other Genitourinary: Denies: burning, discharge, frequency, flank pain, hematuria, incontinence, pain, urgency, other Neurologic/Psychiatric: Denies: anxiety, depressed, emotional problems, headache, numbness, paresthesia, pre-existing deficit, seizure, tingling, tremors, weakness, other Endocrine: Denies: excessive sweating, flushing, intolerance to cold, intolerance to heat, increased hunger, increased thirst, increased urine, unexplained weight gain, unexplained weight loss, other MSK: denies joint pains, swelling, stiffness Hematologic/Lymphatic: Denies: anemia, easy bleeding, easy bruising, other General: WDWN female in NAD, A&O x 4 HEENT: Normocephalic cephalic atraumatic, pupils equal round reactive to light and accommodation, nares patent and no symmetrical, no tonsillar exudates, mucous membranes moist CV: Regular rate regular rhythm, no murmurs, rubs, or gallops Pulm: Lungs clear to auscultation bilaterally. No wheezes, rhonchi, or rales GI: Soft, nontender, nondistended, bowel sounds present Neuro: CN 2-12 intact bilaterally, no focal signs. Ext: No lower extremity edema bilaterally Skin: no rashes lesions or ulcers Msk: Joints symmetrical in upper extremity and lower extremity bilaterally, no joint swelling. Lymph: No lymphadenopathy in upper extremity and lower extremity #Atypical chest pain. HEART score 2 (low risk) #Rule out ACS #Essential hypertension -Admit to telemetry -Echocardiogram -Trend troponins: Negative -Cardiology consult: Dr. Weeks -Stress echo negative -IV hydration #Lactic acidosis suspect secondary to severe dehydration -Resolved off abx and with IV fluids -CTM -Encourage PO intake #Diabetes mellitus type 2 >Last A1C 10.9 per patient -Hold home p.o. antihyperglycemic -Sliding scale Insulin -Hypoglycemia protocol -Check A1c - 9.2 - lipid panel showed LDL 100. #History of breast cancer status post lumpectomy -Follow-up with oncologist [facility] DVTPPX: HSQ GI PPX: none needed Fluids: as above Diet: Cardiac, NPO after midnight Lines: None PT/OT: None needed Code status: Full code Dispo: Pending stress test Reason for Continued Hospitalization: stress test 45 minutes spent on this discharge. > 50% spent on counseling and care coordination. Time of note may not reflect time patient was seen. Discharge Condition Upon Discharge: stable Discharge Vital Signs Last Vital Signs Date Time Temp Pulse Resp B/P (MAP) Pulse Ox O2 Delivery O2 Flow Rate FiO2 04/02/19 11:48 88 04/02/19 08:28 Room Air 04/02/19 08:00 97.5 20 123/72 (89) 96 Discharge Disposition Patient was discharged to home Discharge Diagnoses: (1) Chest pain (2) Essential hypertension (3) History of breast cancer (4) Lactic acidosis (5) Diabetes mellitus type 2 in obese Discharge Instructions Discharge Instructions Activity: resume normal activities Damaso Lemus D.O. Apr 02, 2019 18:11
== END 2019-04-02 16:29 | disposition home or self-care (01) | DRG 309 ==
LOC: EMR 18:21 → 2E 18:33 → EDBEDREQ 04-01 03:26 → 2E 04-01 04:32
DX: R00.0 Tachycardia, unspecified (principal); E87.2 Acidosis; R07.89 Other chest pain; E86.0 Dehydration; Z88.2 Allergy status to sulfonamides; Z88.8 Allergy status to other drugs, medicaments and biological substances; Z90.710 Acquired absence of both cervix and uterus; I10 Essential (primary) hypertension; E11.9 Type 2 diabetes mellitus without complications; Z85.3 Personal history of malignant neoplasm of breast
CPT/HCPCS: 36415; 71045; 80048; 80053; 80061; 81003; 82550; 82553; 82962; 83036; 83605; 83735; 84100; 84484; 85025; 85379; 86710; 87040; 93005; 93017; 93306; 93350; 96361; 96374; 99285; J1815; J7030; S5561